=== PATIENT | male | born 1935 | race Caucasian/White ===

== ENCOUNTER 2017-02-13 22:48 | Emergency (ER) | payer MEDICARE, OTHER ==
[2017-02-13] MEDS ORDERED: Sodium Chloride 0.9% 1,000 ML IV SCH (23:45)
--- NOTE | 2017-02-14 01:26 | EDM.PDOC ---
ED HPI GENERAL MEDICAL PROBLEM - General Chief Complaint: General Stated Complaint: ILLNESS Time Seen by Provider: 02/14/17 01:12 Source of Information: Reports: Patient, Family History Limitations: Reports: No Limitations - History of Present Illness INITIAL COMMENTS - FREE TEXT/NARRATIVE: This gentleman arrived by EMS. The complaint is lethargy. The history is given by his who says that he's just been sort of lethargic today and couldn't even sit up. He had a cough that started yesterday. She said today that time she just wasn't responding very well. Only thing he's had to eat or drink today is about 2 tablespoons of broth for lunch. Nothing else. She thinks maybe he had a fever he just felt hot. Patient says he feels fine. Denies Pain Score (Numeric/FACES): 0 - Related Data Allergies Allergy/AdvReac Type Severity Reaction Status Date / Time latex AdvReac Rash Verified 02/13/17 22:57 Home Meds: Home Meds Aspirin [Adult Low Dose Aspirin EC] 81 mg PO DAILY 03/19/16 [History] Cinnamon Bark [Cinnamon] 500 mg PO DAILY 03/19/16 [History] Coconut Oil 1,000 mg PO DAILY 03/19/16 [History] Donepezil HCl [Aricept] 10 mg PO DAILY 03/19/16 [History] Metoprolol Succinate [Toprol XL] 25 mg PO DAILY 03/19/16 [History] Mirabegron [Myrbetriq] 50 mg PO DAILY 03/19/16 [History] Tamsulosin [Flomax] 0.4 mg PO DAILY 03/19/16 [History] metFORMIN [Glucophage] 500 mg PO DAILY 03/19/16 [History] Cyanocobalamin (Vitamin B-12) [Vitamin B-12] 500 mcg PO DAILY 02/13/17 [History] Past Medical History HEENT History: Reports: Hard of Hearing, Impaired Vision, Other (See Below) Other HEENT History: Hearing aids Cardiovascular History: Reports: Hypertension Respiratory History: Reports: Pneumonia, Recurrent, Sleep Apnea Gastrointestinal History: Reports: None Musculoskeletal History: Reports: Fracture Neurological History: Reports: Alzheimers Disease, Neuropathy, Diabetic Psychiatric History: Reports: Alzheimers Disease, Anxiety, Dementia, Depression Endocrine/Metabolic History: Reports: Diabetes, Type II - Infectious Disease History Infectious Disease History: Reports: Chicken Pox - Past Surgical History GI Surgical History: Reports: Colonoscopy Male Surgical History: Reports: TURP-Transurethral Resection of Prostate Social & Family History - Tobacco Use Smoking Status *Q: Never Smoker Second Hand Smoke Exposure: No - Caffeine Use Caffeine Use: Reports: Coffee, Soda, Tea - Recreational Drug Use Recreational Drug Use: No - Living Situation & Occupation Living situation: Reports: ED ROS GENERAL - Review of Systems Review Of Systems: See Below Constitutional: Reports: Fever (Possible according to his ), Weakness (Per ) HEENT: Reports: No Symptoms Respiratory: Reports: Cough (Slight cough as per his ) Cardiovascular: Reports: No Symptoms Endocrine: Reports: No Symptoms GI/Abdominal: Reports: No Symptoms : Reports: No Symptoms Musculoskeletal: Reports: No Symptoms Skin: Reports: No Symptoms Neurological: Reports: No Symptoms Psychiatric: Reports: No Symptoms ED EXAM, GENERAL - Physical Exam Exam: See Below Exam Limited By: No Limitations General Appearance: Alert, WD/WN, No Apparent Distress Eye Exam: Bilateral Eye: Normal Inspection Ears: Normal External Exam, Other (Left TM is normal right TM is obscured by a small amount of cerumen) Nose: Normal Inspection Throat/Mouth: Normal Inspection, Normal Oropharynx Head: Atraumatic Neck: Normal Inspection, Supple Respiratory/Chest: Lungs Clear Cardiovascular: Normal Peripheral Pulses, Regular Rate, Rhythm, No Murmur GI/Abdominal: Soft, Non-Tender Back Exam: Normal Inspection Extremities: Normal Inspection Neurological: Alert, Oriented (He knows who he is where he is negative family members. He is said to have some history of Alzheimer's disease), CN II-XII Intact, Normal Cognition, No Motor/Sensory Deficits Psychiatric: Normal Affect Skin Exam: Warm, Dry Course - Vital Signs Last Recorded V/S: Last Vital Signs Temp 37.9 C 02/13/17 23:15 Pulse 73 02/13/17 23:15 Resp 16 02/13/17 23:15 BP 145/88 H 02/13/17 23:15 Pulse Ox 93 L 02/13/17 23:15 - Orders/Labs/Meds Orders: Active Orders 24 hr Category Date Time Status Chest 1V Frontal [CR] Urgent Exams 02/13/17 23:32 Taken Sodium Chloride 0.9% [Normal Saline] 1,000 ml Med 02/13/17 23:45 Active IV ASDIRECTED Medication Orders Sodium Chloride (Normal Saline) 1,000 mls @ 999 mls/hr IV ASDIRECTED LARISSA Last Admin: 02/13/17 23:39 Dose: 999 mls/hr Labs: Laboratory Tests 02/13/17 02/13/17 02/13/17 Range/Units 23:40 23:40 23:40 WBC 10.0 (4.5-11.0) K/uL RBC 4.97 (4.30-5.90) M/uL Hgb 14.8 (12.0-15.0) g/dL Hct 43.5 (40.0-54.0) % MCV 88 (80-98) fL MCH 30 (27-31) pg MCHC 34 (32-36) % Plt Count 164 (150-400) K/uL Neut % (Auto) 82 H (36-66) % Lymph % (Auto) 4 L (24-44) % [place] % (Auto) 13 H (2-6) % Eos % (Auto) 0 L (2-4) % Baso % (Auto) 0 (0-1) % Sodium 138 L (140-148) mmol/L Potassium 4.5 (3.6-5.2) mmol/L Chloride 102 (100-108) mmol/L Carbon Dioxide 27 (21-32) mmol/L Anion Gap 13.5 (5.0-14.0) mmol/L BUN 16 (7-18) mg/dL Creatinine 1.2 (0.8-1.3) mg/dL Est Cr Clr Drug Dosing 46.67 mL/min Estimated GFR (MDRD) 58 L (>60) Glucose 147 H (74-106) mg/dL Lactic Acid 1.2 (0.4-2.0) mmol/L Calcium 8.7 (8.5-10.1) mg/dL Total Bilirubin 0.9 (0.2-1.0) mg/dL AST 13 L (15-37) U/L ALT 20 (12-78) U/L Alkaline Phosphatase 53 (46-116) U/L Total Protein 6.3 L (6.4-8.2) g/dL Albumin 3.4 (3.4-5.0) g/dL Globulin 2.9 (2.3-3.5) g/dL Albumin/Globulin Ratio 1.2 (1.2-2.2) Urine Color Urine Appearance Urine pH (4.5-8.0) Ur Specific [place] (1.008-1.030) Urine Protein (NEGATIVE) mg/dL Urine Glucose (UA) (NEGATIVE) mg/dL Urine Ketones (NEGATIVE) mg/dL Urine Occult Blood (NEGATIVE) Urine Nitrite (NEGAITVE) Urine Bilirubin (NEGATIVE) Urine Urobilinogen (NORMAL) mg/dL Ur Leukocyte Esterase (NEGATIVE) Urine RBC (0-5) Urine WBC (0-5) Ur Epithelial Cells Amorphous Sediment Urine Bacteria Urine Mucus 02/14/17 Range/Units 00:41 WBC (4.5-11.0) K/uL RBC (4.30-5.90) M/uL Hgb (12.0-15.0) g/dL Hct (40.0-54.0) % MCV (80-98) fL MCH (27-31) pg MCHC (32-36) % Plt Count (150-400) K/uL Neut % (Auto) (36-66) % Lymph % (Auto) (24-44) % [place] % (Auto) (2-6) % Eos % (Auto) (2-4) % Baso % (Auto) (0-1) % Sodium (140-148) mmol/L Potassium (3.6-5.2) mmol/L Chloride (100-108) mmol/L Carbon Dioxide (21-32) mmol/L Anion Gap (5.0-14.0) mmol/L BUN (7-18) mg/dL Creatinine (0.8-1.3) mg/dL Est Cr Clr Drug Dosing mL/min Estimated GFR (MDRD) (>60) Glucose (74-106) mg/dL Lactic Acid (0.4-2.0) mmol/L Calcium (8.5-10.1) mg/dL Total Bilirubin (0.2-1.0) mg/dL AST (15-37) U/L ALT (12-78) U/L Alkaline Phosphatase (46-116) U/L Total Protein (6.4-8.2) g/dL Albumin (3.4-5.0) g/dL Globulin (2.3-3.5) g/dL Albumin/Globulin Ratio (1.2-2.2) Urine Color Yellow Urine Appearance Clear Urine pH 6.0 (4.5-8.0) Ur Specific [place] 1.020 (1.008-1.030) Urine Protein Negative (NEGATIVE) mg/dL Urine Glucose (UA) Normal (NEGATIVE) mg/dL Urine Ketones 15 H (NEGATIVE) mg/dL Urine Occult Blood Negative (NEGATIVE) Urine Nitrite Negative (NEGAITVE) Urine Bilirubin Negative (NEGATIVE) Urine Urobilinogen Normal (NORMAL) mg/dL Ur Leukocyte Esterase Negative (NEGATIVE) Urine RBC 0-5 (0-5) Urine WBC 0-5 (0-5) Ur Epithelial Cells Not seen Amorphous Sediment Rare Urine Bacteria Not seen Urine Mucus Not seen Meds: Medications Generic Name Dose Route Start Last Admin Trade Name Freq PRN Reason Stop Dose Admin Sodium Chloride 1,000 mls @ 999 mls/hr 02/13/17 23:45 02/13/17 23:39 Normal Saline IV 999 mls/hr ASDIRECTED LARISSA Administration - Re-Assessments/Exams Free Text/Narrative Re-Assessment/Exam: 02/14/17 01:24 Pending labs he was given a 1 L bolus of IV normal saline. His chest x-ray shows no evidence of any infiltrates. CBC and chemistries are unremarkable. His urinalysis is unremarkable. After all labs in the hydration we stood the patient up and his blood pressure was well within normal range I believe 128 systolic. The nurse walked him around in the hallway in the ER and he did very well. I think most likely he may have been just slightly behind on fluids. I don 't see any indication of any infection. Departure - Departure Time of Disposition: 01:26 Disposition: Home, Self-Care 01 Condition: Fair Clinical Impression: Dehydration - Discharge Information Referrals: Philipp Diaz MD [Primary Care Provider] - Additional Instructions: There was no sign of any kind of infection. He may have been just slightly dehydrated. He received 1 L of IV normal saline. He probably needs a little bit more fluid which she can get orally. The best thing is to just be sure that he' s getting plenty of liquids tomorrow. If he has more problems than return to the ER or see your Dr. - My Orders Last 24 Hours: My Active Orders 02/13/17 23:32 Chest 1V Frontal [CR] Urgent 02/13/17 23:45 Sodium Chloride 0.9% [Normal Saline] 1,000 ml IV ASDIRECTED - Assessment/Plan Last 24 Hours: My Active Orders 02/13/17 23:32 Chest 1V Frontal [CR] Urgent 02/13/17 23:45 Sodium Chloride 0.9% [Normal Saline] 1,000 ml IV ASDIRECTED
[2017-02-14 01:46] VITALS: BP 128/81
--- NOTE | 2017-02-14 08:58 | CR ---
Chest 1V Frontal INDICATION: pain COMPARISON: 03/21/2016 FINDINGS: Single view of the chest obtained shows normal heart size. No infiltrate or pleural effus ion. No signs of pulmonary edema. IMPRESSION: Negative single view of the chest.
== END 2017-02-14 01:46 | disposition home or self-care (01) ==
LOC: JP.ED 22:48
DX: E86.0 Dehydration (principal); E11.40 Type 2 diabetes mellitus with diabetic neuropathy, unspecified; I10 Essential (primary) hypertension; Z79.82 Long term (current) use of aspirin; Z91.040 Latex allergy status; Z79.899 Other long term (current) drug therapy; Z87.01 Personal history of pneumonia (recurrent); Z79.84 Long term (current) use of oral hypoglycemic drugs
CPT/HCPCS: 36415; 71010; 80053; 81001; 83605; 85025; 96360; 99284; J7040

== ENCOUNTER 2018-09-08 15:57 | Observation (INO) | payer MEDICARE, OTHER ==
[2018-09-08] MEDS ORDERED: Lidocaine 2% Jelly 10 ML Urojet MUCMEM ONE (16:45)
--- NOTE | 2018-09-08 16:45 | EDM.PDOC ---
ED HPI GENERAL MEDICAL PROBLEM - General Chief Complaint: General Stated Complaint: [facility] Time Seen by Provider: 09/08/18 16:10 Source of Information: Reports: Patient, EMS, Family History Limitations: Reports: No Limitations - History of Present Illness INITIAL COMMENTS - FREE TEXT/NARRATIVE: 83-year-old male, dementia, who is cared for by his had a clinic visit last week and was doing well. He is generally weak but assist with ambulation and is usually much easier to take care of. This morning however instead of waking at 9:30, his normal waking time, his had to wake him up much later in the morning. He was diaphoretic, weak, and unable to help her getting up. Eventually she managed to get him into the bathroom but after sitting on the toilet again he was unable to get up. The patient himself has no complaints, does not seem short of breath, is just very weak. She had to call the ambulance who assisted him off of the toilet and then prepared him to come into the emergency room. He's had no fevers but was diaphoretic this morning. No asymmetric weakness, and now that he is here in the emergency room his strength is improved, he is able to sit up with assistance and his speech is clear. Onset: Unknown/Unsure Associated Symptoms: Reports: Malaise, Nausea/Vomiting (Patient had one emesis on the way to the emergency room in the ambulance), Weakness - Related Data Allergies Allergy/AdvReac Type Severity Reaction Status Date / Time latex AdvReac Rash Verified 02/13/17 22:57 Home Meds: Home Meds Aspirin [Adult Low Dose Aspirin EC] 81 mg PO DAILY 03/19/16 [History] Cinnamon Bark [Cinnamon] 500 mg PO DAILY 03/19/16 [History] Coconut Oil 1,000 mg PO DAILY 03/19/16 [History] Donepezil HCl [Aricept] 10 mg PO DAILY 03/19/16 [History] Metoprolol Succinate [Toprol XL] 25 mg PO DAILY 03/19/16 [History] Mirabegron [Myrbetriq] 50 mg PO DAILY 03/19/16 [History] Tamsulosin [Flomax] 0.4 mg PO DAILY 03/19/16 [History] metFORMIN [Glucophage] 500 mg PO DAILY 03/19/16 [History] QUEtiapine Fumarate [Quetiapine Fumarate] 12.5 mg PO DAILY 09/08/18 [History] Past Medical History HEENT History: Reports: Hard of Hearing, Impaired Vision, Other (See Below) Other HEENT History: Hearing aids Cardiovascular History: Reports: Hypertension Respiratory History: Reports: Pneumonia, Recurrent, Sleep Apnea Gastrointestinal History: Reports: None Musculoskeletal History: Reports: Fracture Neurological History: Reports: Alzheimers Disease, Neuropathy, Diabetic Psychiatric History: Reports: Alzheimers Disease, Anxiety, Dementia, Depression Endocrine/Metabolic History: Reports: Diabetes, Type II - Infectious Disease History Infectious Disease History: Reports: Chicken Pox - Past Surgical History GI Surgical History: Reports: Colonoscopy Male Surgical History: Reports: TURP-Transurethral Resection of Prostate Social & Family History - Tobacco Use Smoking Status *Q: Never Smoker - Caffeine Use Caffeine Use: Reports: Coffee - Recreational Drug Use Recreational Drug Use: No - Living Situation & Occupation Living situation: Reports: ED ROS GENERAL - Review of Systems Review Of Systems: See Below Constitutional: Reports: Chills, Malaise, Weakness. Denies: Fever HEENT: Reports: Rhinitis Respiratory: Reports: Cough. Denies: Sputum Cardiovascular: Denies: Chest Pain GI/Abdominal: Reports: Nausea, Vomiting (One emesis in route to the hospital). Denies: Abdominal Pain Skin: Reports: Pallor, Diaphoresis Neurological: Reports: Weakness. Denies: Headache, Numbness Psychiatric: Reports: Other (Slowly worsening dementia) ED EXAM, GENERAL - Physical Exam Exam: See Below Exam Limited By: No Limitations General Appearance: Alert, No Apparent Distress Eye Exam: Bilateral Eye: EOMI Throat/Mouth: Normal Inspection Head: Atraumatic Neck: Normal Inspection Respiratory/Chest: No Respiratory Distress, Rhonchi (A few scattered rhonchi, good underlying or movement) Cardiovascular: Regular Rate, Rhythm GI/Abdominal: Soft, Non-Tender Extremities: No: Pedal Edema Neurological: Alert. No: Oriented Psychiatric: No: Depressed Mood Skin Exam: Warm, Dry Course - Vital Signs Last Recorded V/S: Last Vital Signs Temp 100.3 F 09/09/18 04:00 Pulse 69 09/09/18 04:00 Resp 18 09/09/18 04:00 BP 150/74 H 09/09/18 04:00 Pulse Ox 94 L 09/09/18 04:00 - Orders/Labs/Meds Orders: Medication Orders Acetaminophen (Tylenol) 650 mg PO Q4H PRN PRN Reason: Pain (Mild 1-3)/fever Albuterol (Proventil Neb Soln) 2.5 mg NEB Q4H PRN PRN Reason: Shortness Of Breath/wheezing Aspirin (Halfprin) 81 mg PO DAILY [facility] Donepezil HCl (Aricept) 10 mg PO DAILY [facility] Doxycycline Hyclate (Vibramycin) 100 mg PO Q12H [facility] Last Admin: 09/08/18 21:05 Dose: 100 mg Sodium Chloride (Normal Saline) 1,000 mls @ 125 mls/hr IV ASDIRECTED [facility] Last Admin: 09/09/18 04:44 Dose: 125 mls/hr Infusion: 09/09/18 04:44 Dose: 125 mls/hr Admin: 09/08/18 20:44 Dose: 125 mls/hr Melatonin (Melatonin) 9 mg PO BEDTIME [facility] Last Admin: 09/08/18 21:05 Dose: 9 mg Metformin HCl (Glucophage) 500 mg PO DAILY [facility] Metoprolol Succinate (Toprol Xl) 25 mg PO DAILY [facility] Mirabegron (Myrbetriq) 50 mg PO DAILY [facility] Ondansetron HCl (Zofran Odt) 4 mg PO Q6H PRN PRN Reason: Nausea able to take PO Quetiapine Fumarate (Seroquel) 12.5 mg PO BEDTIME [facility] Last Admin: 09/08/18 21:06 Dose: 12.5 mg Tamsulosin HCl (Flomax) 0.4 mg PO DAILY [facility] Labs: Laboratory Tests 09/08/18 09/08/18 09/08/18 Range/Units 16:37 16:37 17:21 WBC 9.9 (4.5-11.0) K/uL RBC 5.38 (4.30-5.90) M/uL Hgb 16.0 H (12.0-15.0) g/dL Hct 47.9 (40.0-54.0) % MCV 89 (80-98) fL MCH 30 (27-31) pg MCHC 33 (32-36) % Plt Count 168 (150-400) K/uL Neut % (Auto) 82 H (36-66) % Lymph % (Auto) 5 L (24-44) % [place] % (Auto) 13 H (2-6) % Eos % (Auto) 0 L (2-4) % Baso % (Auto) 0 (0-1) % Sodium 138 L (140-148) mmol/L Potassium 4.5 (3.6-5.2) mmol/L Chloride 101 (100-108) mmol/L Carbon Dioxide 25 (21-32) mmol/L Anion Gap 16.5 H (5.0-14.0) mmol/L BUN 18 (7-18) mg/dL Creatinine 1.3 (0.8-1.3) mg/dL Est Cr Clr Drug Dosing 44.57 mL/min Estimated GFR (MDRD) 53 L (>60) Glucose 162 H (74-106) mg/dL Calcium 9.1 (8.5-10.1) mg/dL Total Bilirubin 1.0 (0.2-1.0) mg/dL AST 14 L (15-37) U/L ALT 20 (12-78) U/L Alkaline Phosphatase 62 (46-116) U/L Troponin I < 0.017 (0.000-0.056) ng/mL Total Protein 6.7 (6.4-8.2) g/dL Albumin 3.4 (3.4-5.0) g/dL Globulin 3.3 (2.3-3.5) g/dL Albumin/Globulin Ratio 1.0 L (1.2-2.2) Urine Color [place] Urine Appearance Clear Urine pH 5.0 (4.5-8.0) Ur Specific [place] 1.020 (1.008-1.030) Urine Protein Trace (NEGATIVE) mg/dL Urine Glucose (UA) 50 H (NEGATIVE) mg/dL Urine Ketones 150 H (NEGATIVE) mg/dL Urine Occult Blood Negative (NEGATIVE) Urine Nitrite Negative (NEGAITVE) Urine Bilirubin Moderate (NEGATIVE) Urine Urobilinogen 1 (NORMAL) mg/dL Ur Leukocyte Esterase Small (NEGATIVE) Urine RBC 0-5 (0-5) Urine WBC 5-10 H (0-5) Ur Epithelial Cells Few Amorphous Sediment Few Urine Bacteria Occasional Urine Mucus Few Meds: Medications Generic Name Dose Route Start Last Admin Trade Name Freq PRN Reason Stop Dose Admin Acetaminophen 650 mg 09/08/18 19:45 Tylenol PO Q4H PRN Pain (Mild 1-3)/fever Albuterol 2.5 mg 09/08/18 19:45 Proventil Neb Soln NEB Q4H PRN Shortness Of Breath/wheezing Aspirin 81 mg 09/09/18 09:00 Halfprin PO DAILY [facility] Donepezil HCl 10 mg 09/09/18 09:00 Aricept PO DAILY LARIS[facility] Doxycycline Hyclate 100 mg 09/08/18 20:00 09/08/18 21:05 Vibramycin PO 100 mg Q12H LARISSA Administration Sodium Chloride 1,000 mls @ 125 mls/hr 09/08/18 19:45 09/09/18 04:44 Normal Saline IV 125 mls/hr ASDIRECTED LARISSA Administration Melatonin 9 mg 09/08/18 21:00 09/08/18 21:05 Melatonin PO 9 mg BEDTIME LARISSA Administration Metformin HCl 500 mg 09/09/18 09:00 Glucophage PO DAILY LARIS[facility] Metoprolol Succinate 25 mg 09/09/18 09:00 Toprol Xl PO DAILY LAR[facility] Mirabegron 50 mg 09/09/18 09:00 Myrbetriq PO DAILY [facility] Ondansetron HCl 4 mg 09/08/18 19:45 Zofran Odt PO Q6H PRN Nausea able to take PO Quetiapine Fumarate 12.5 mg 09/08/18 21:00 09/08/18 21:06 Seroquel PO 12.5 mg BEDTIME LARISSA Administration Tamsulosin HCl 0.4 mg 09/09/18 09:00 Flomax PO DAILY LARISSA Discontinued Medications Generic Name Dose Route Start Last Admin Trade Name Freq PRN Reason Stop Dose Admin Sodium Chloride 1,000 mls @ 500 mls/hr 09/08/18 18:30 09/08/18 18:34 Normal Saline IV 500 mls/hr ASDIRECTED LARISSA Administration Lidocaine HCl 10 ml 09/08/18 16:45 09/08/18 17:01 Xylocaine 2% Jelly MUCMEM 09/08/18 16:46 10 ml ONETIME ONE Administration - Re-Assessments/Exams Free Text/Narrative Re-Assessment/Exam: 09/08/18 18:29 1 view chest x-ray was obtained which showed some possible lymphadenopathy but no infiltrate or effusions. 09/08/18 18:30 White count hemoglobin are normal. Troponin is 0. Urine is negative for significant infection but there are ketones, his chemistry panel shows a GFR of 53 and a creatinine 1.3. He may have some mild dehydration so an IV was started of normal saline at 500 mL an hour. Despite the patient remained stable, he still remained very weak and his is unable to care for him at home in this condition. I talked to the hospitalist service about monitoring him overnight with hydration and reassessing his strength in the morning, along with considering any further evaluation necessary. He has not had any more nausea or emesis while in the emergency room. Departure - Departure Time of Disposition: 19:39 Disposition: Admitted As Inpatient 68 Condition: Fair Clinical Impression: Weakness, Dehydration, Viral bronchitis Alzheimer's dementia Qualifiers: Alzheimer's disease onset: unspecified onset Dementia behavioral disturbance: without behavioral disturbance Qualified Code(s): G30.9 - Alzheimer's disease, unspecified - Discharge Information
--- NOTE | 2018-09-08 17:28 | CRLCR ---
Indication: Weakness. Cough Technique: Chest 1 view Comparison: None Findings/Impression: Cardiovascular and mediastinum: Normal cardiac size. A calcified aorta. Lungs and pleural space: Several ill-defined left perihilar and suprahilar nodular opacities measuring up to 1 cm, and an apparent subtle right upper lung nodular opacity projecting over the anterior 2nd rib. Recommend further evaluation with CT scan. No lobar consolidation or pleural effusions. Bones and soft tissues: No significant findings. Dictated by Maneul Parks MD @ 09/08/2018 5:27:18 PM Dictated by: Manuel Parks MD @ 09/08/2018 17:27:40 (Electronically Signed)
[2018-09-08] MEDS ORDERED: Sodium Chloride 0.9% 1,000 ML IV SCH (18:30)
--- NOTE | 2018-09-08 19:22 | PCM.HP ---
H&P History of Present Illness - General Date of Service: 09/08/18 Admit Problem/Dx: Admission Diagnosis/Problem Admission Diagnosis/Problem Bronchitis Source of Information: Family, Provider. No: Patient History Limitations: Reports: Altered Mental Status (dementia ) - History of Present Illness Initial Comments - Free Text/Narative: Satish presents to the emergency room today with weakness. History is limited by Alzheimer's dementia so history is gathered from his . She reports that he normally wakes up at 9:30 but did not wake up until she woke him up at 1:30 this afternoon. He was very weak and required help to get to the bathroom. Normally he can walk without difficulty. Once he was in the bathroom he remains very weak. He was diaphoretic at that time. He was more confused than usual. He did not offer any complaints at the time and currently says he feels well. She does note he's been coughing for maybe up to a couple of weeks. He does produce phlegm but swallows it and has not expectorated. She doesn't think that he's appeared to be in pain. Haven't measured any fevers. Appetite has been normal. Energy is been normal up until today. Mild diarrhea intermittently over the past week. Workup in the emergency room was fairly reassuring. The patient is extremely weak and not safe for outpatient management. Bronchitis could be considered. He will be given some IV fluids for mild dehydration and started on antibiotics. Physical therapy will evaluate him in the morning. - Related Data Allergies/Adverse Reactions: Allergies Allergy/AdvReac Type Severity Reaction Status Date / Time latex AdvReac Rash Verified 02/13/17 22:57 Home Medications: Home Meds Aspirin [Adult Low Dose Aspirin EC] 81 mg PO DAILY 03/19/16 [History] Cinnamon Bark [Cinnamon] 500 mg PO DAILY 03/19/16 [History] Coconut Oil 1,000 mg PO DAILY 03/19/16 [History] Donepezil HCl [Aricept] 10 mg PO DAILY 03/19/16 [History] Metoprolol Succinate [Toprol XL] 25 mg PO DAILY 03/19/16 [History] Mirabegron [Myrbetriq] 50 mg PO DAILY 03/19/16 [History] Tamsulosin [Flomax] 0.4 mg PO DAILY 03/19/16 [History] metFORMIN [Glucophage] 500 mg PO DAILY 03/19/16 [History] QUEtiapine Fumarate [Quetiapine Fumarate] 12.5 mg PO DAILY 09/08/18 [History] Past Medical History HEENT History: Reports: Hard of Hearing, Impaired Vision, Other (See Below) Other HEENT History: Hearing aids Cardiovascular History: Reports: Hypertension Respiratory History: Reports: Pneumonia, Recurrent, Sleep Apnea Gastrointestinal History: Reports: None Musculoskeletal History: Reports: Fracture Neurological History: Reports: Alzheimers Disease, Neuropathy, Diabetic Psychiatric History: Reports: Alzheimers Disease, Anxiety, Dementia, Depression Endocrine/Metabolic History: Reports: Diabetes, Type II - Infectious Disease History Infectious Disease History: Reports: Chicken Pox - Past Surgical History GI Surgical History: Reports: Colonoscopy Male Surgical History: Reports: TURP-Transurethral Resection of Prostate Social & Family History - Family History Oncologic: Reports: Lung (Mother) - Tobacco Use Smoking Status *Q: Never Smoker - Caffeine Use Caffeine Use: Reports: Coffee - Alcohol Use Alcohol Use History: No - Recreational Drug Use Recreational Drug Use: No - Living Situation & Occupation Living situation: Reports: H&P Review of Systems - Review of Systems: Review Of Systems: Unable To Obtain (Dementia) Exam - Exam Exam: See Below - Vital Signs Vital Signs: Last Vital Signs Temp 36.1 C 09/08/18 16:04 Pulse 67 09/08/18 16:04 Resp 16 09/08/18 16:04 BP 158/64 H 09/08/18 16:04 Pulse Ox 96 09/08/18 16:04 Weight: 88.451 kg - Exam Quality Assessment: No: Supplemental Oxygen General: Alert, Cooperative. No: Oriented, Mild Distress HEENT: No: Mucosa Moist & [place] (dry), Scleral Icterus Neck: Trachea Midline. No: Lymphadenopathy, JVD Lungs: Normal Respiratory Effort, Rhonchi (Rare intermittent rhonchi on the left side). No: Wheezing Cardiovascular: Regular Rate, Regular Rhythm. No: Systolic Murmur GI/Abdominal Exam: Normal Bowel Sounds, Soft, Non-Tender. No: No Distention Extremities: No Pedal Edema. No: Increased Warmth Peripheral Pulses: 2+: Dorsalis Pedis (L), Dorsalis Pedis (R) Skin: Warm, Dry Neuro Extensive - Mental Status: Alert, Oriented x3, Nl Response to Commands Neuro Extensive - Motor, Sensory, Reflexes: CN II-XII Intact. No: Abnormal Motor, Tremor Psychiatric: Alert, Normal Affect - Patient Data Lab Results Last 24 hrs: Laboratory Results - last 24 hr 09/08/18 09/08/18 09/08/18 Range/Units 16:37 16:37 17:21 WBC 9.9 (4.5-11.0) K/uL RBC 5.38 (4.30-5.90) M/uL Hgb 16.0 H (12.0-15.0) g/dL Hct 47.9 (40.0-54.0) % MCV 89 (80-98) fL MCH 30 (27-31) pg MCHC 33 (32-36) % Plt Count 168 (150-400) K/uL Neut % (Auto) 82 H (36-66) % Lymph % (Auto) 5 L (24-44) % [place] % (Auto) 13 H (2-6) % Eos % (Auto) 0 L (2-4) % Baso % (Auto) 0 (0-1) % Sodium 138 L (140-148) mmol/L Potassium 4.5 (3.6-5.2) mmol/L Chloride 101 (100-108) mmol/L Carbon Dioxide 25 (21-32) mmol/L Anion Gap 16.5 H (5.0-14.0) mmol/L BUN 18 (7-18) mg/dL Creatinine 1.3 (0.8-1.3) mg/dL Est Cr Clr Drug Dosing 44.57 mL/min Estimated GFR (MDRD) 53 L (>60) Glucose 162 H (74-106) mg/dL Calcium 9.1 (8.5-10.1) mg/dL Total Bilirubin 1.0 (0.2-1.0) mg/dL AST 14 L (15-37) U/L ALT 20 (12-78) U/L Alkaline Phosphatase 62 (46-116) U/L Troponin I < 0.017 (0.000-0.056) ng/mL Total Protein 6.7 (6.4-8.2) g/dL Albumin 3.4 (3.4-5.0) g/dL Globulin 3.3 (2.3-3.5) g/dL Albumin/Globulin Ratio 1.0 L (1.2-2.2) Urine Color [place] Urine Appearance Clear Urine pH 5.0 (4.5-8.0) Ur Specific [place] 1.020 (1.008-1.030) Urine Protein Trace (NEGATIVE) mg/dL Urine Glucose (UA) 50 H (NEGATIVE) mg/dL Urine Ketones 150 H (NEGATIVE) mg/dL Urine Occult Blood Negative (NEGATIVE) Urine Nitrite Negative (NEGAITVE) Urine Bilirubin Moderate (NEGATIVE) Urine Urobilinogen 1 (NORMAL) mg/dL Ur Leukocyte Esterase Small (NEGATIVE) Urine RBC 0-5 (0-5) Urine WBC 5-10 H (0-5) Ur Epithelial Cells Few Amorphous Sediment Few Urine Bacteria Occasional Urine Mucus Few Result Diagrams: 09/08/18 16:37 09/08/18 16:37 Imaging Impressions Last 24 hrs: Chest x-ray - images personally reviewed - There is no evidence for mass, infiltrate or effusion. There do appear to be some small nodules in the upper lung in the perihilar and right upper lobe area. *Q Meaningful Use (ADM) - VTE Risk Assess *Q Each Risk Factor Represents 1 Point: Obesity ( BMI > 25 kg/m2) Total Score 1 Point Risk Factors: 1 Each Risk Factor Represents 2 Points: None Total Score 2 Point Risk Factors: 0 Each Risk Factor Represents 3 Points: Age 75 Years or Greater Total Score 3 Point Risk Factors: 3 Each Risk Factor Represents 5 Points: None Total Score 5 Point Risk Factors: 0 Venous Thromboembolism Risk Factor Score *Q: 4 - Problem List (1) Acute bronchitis SNOMED Code(s): 51690511 ICD Code: J20.9 - ACUTE BRONCHITIS, UNSPECIFIED Status: Acute Current Visit: Yes Qualifiers: Bronchitis organism: unspecified organism Qualified Code(s): J20.9 - Acute bronchitis, unspecified (2) Weakness SNOMED Code(s): 36144547 ICD Code: R53.1 - WEAKNESS Status: Acute Current Visit: Yes (3) Dehydration SNOMED Code(s): 15779508 ICD Code: E86.0 - DEHYDRATION Status: Acute Current Visit: Yes (4) Alzheimer's dementia SNOMED Code(s): 33958267 ICD Code: G30.9 - ALZHEIMER'S DISEASE, UNSPECIFIED Status: Chronic Current Visit: Yes Qualifiers: Alzheimer's disease onset: unspecified onset Dementia behavioral disturbance: without behavioral disturbance Qualified Code(s): G30.9 - Alzheimer's disease, unspecified; F02.80 - Dementia in other diseases classified elsewhere without behavioral disturbance (5) Type 2 diabetes mellitus SNOMED Code(s): 02435520 ICD Code: E11.9 - TYPE 2 DIABETES MELLITUS WITHOUT COMPLICATIONS Status: Chronic Current Visit: No Qualifiers: Diabetes mellitus mcc insulin use: without exterminator termite use Diabetes mellitus complication status: without complication Qualified Code(s): E11.9 - Type 2 diabetes mellitus without complications Problem List Initiated/Reviewed/Updated: Yes Orders Last 24hrs: Active Orders 24 hr Category Date Time Status Patient Status Manage Transfer [TRANSFER] Routine ADT 09/08/18 19:09 Ordered Sodium Chloride 0.9% [Normal Saline] 1,000 ml Med 09/08/18 18:30 Active IV ASDIRECTED Resuscitation Status Routine Resus Stat 09/08/18 19:10 Ordered Medication Orders Sodium Chloride (Normal Saline) 1,000 mls @ 500 mls/hr IV ASDIRECTED [facility] Last Admin: 09/08/18 18:34 Dose: 500 mls/hr Assessment/Plan Comment:: ASSESSMENT AND PLAN - Acute bronchitis, suspected - increased cough, rare rhonchi noted on examination. Chest x-ray clear other than the lung nodules as discussed below. He is not hypoxic or febrile. White count is normal. This infection could explain his weakness with no other obvious cause for the weakness. -Doxycycline -IV fluids -Physical therapy Possible lung nodules - bilateral upper lung nodules possibly noted on chest x- ray. CT scan recommended for further evaluation. -CT chest in the morning Alzheimer's dementia - no behavior issues. -Melatonin and Seroquel at bedtime Type 2 diabetes mellitus - stable with metformin. Maintenance issues - - DVT prophylaxis - SCDs - GI prophylaxis - not indicated - Nutrition - diabetic diet - Mauricio catheter - not indicated CODE STATUS - DO NOT RESUSCITATE but trial of intubation is okay Admission justification - patient will be referred observation status for hydration and antibiotic initiation Disposition - I would anticipate discharge home tomorrow Primary care physician - Dr. Joe Hong M.D.
[2018-09-08] MEDS ORDERED: Albuterol 0.083% 2.5 MG/3 ML Neb Soln NEB PRN (19:45)
[2018-09-08] MEDS ORDERED: Acetaminophen 325 MG Tab PO PRN (19:45)
[2018-09-08] MEDS ORDERED: Ondansetron 4 MG Tab.DIS PO PRN (19:45)
[2018-09-08] MEDS ORDERED: Doxycycline 100 MG Cap PO SCH (20:00)
[2018-09-08] MEDS: Sodium Chloride 0.9% 1,000 ML IV SCH (20:44)
[2018-09-08] MEDS: Melatonin 3 MG Tab PO SCH (21:05)
[2018-09-08] MEDS: QUETIAPINE 25 MG PO SCH (21:06)
[2018-09-09] MEDS: Sodium Chloride 0.9% 1,000 ML IV SCH (04:44)
[2018-09-09] MEDS: Doxycycline 100 MG Cap PO SCH ×2 (08:21→20:47)
[2018-09-09] MEDS: Tamsulosin 0.4 MG Cap.ER**POM PO SCH (08:22)
[2018-09-09] MEDS: Aspirin 81 MG Tab.EC**POM PO SCH (08:22)
[2018-09-09] MEDS: DONEPEZIL 10 MG PO SCH (08:22)
[2018-09-09] MEDS ORDERED: metFORMIN 500 MG Tab PO SCH (09:00)
[2018-09-09] MEDS ORDERED: Metoprolol Succinate 25 MG Tab.ER PO SCH (09:00)
[2018-09-09] MEDS: Mirabegron 25 MG Tab Extended Release PO SCH ×2 (09:16→10:13)
--- NOTE | 2018-09-09 09:57 | PCM.PN ---
- General Info Date of Service: 09/09/18 Subjective Update: there were no acute events overnight. Patient says he feels better today. No complaints of shortness of breath or pain. Cough is much better but not resolved. No fevers overnight. Still requires assistance to get out of bed. He is able to ambulate with a walker but very slowly and with standby assistance. Vital signs have been stable. Functional Status: Reports: Pain Controlled - Review of Systems General: Reports: Weakness Pulmonary: Denies: Cough - Patient Data Vitals - Most Recent: Last Vital Signs Temp 37.0 C 09/09/18 08:00 Pulse 76 09/09/18 08:21 Resp 18 09/09/18 08:00 BP 162/79 H 09/09/18 08:21 Pulse Ox 96 09/09/18 08:00 Weight - Most Recent: 86.591 kg I&O - Last 24 Hours: Intake & Output 09/08/18 09/09/18 09/09/18 22:59 06:59 14:59 Intake Total 1300 Output Total 350 Balance 1300 -350 Lab Results Last 24 Hours: Laboratory Results - last 24 hr 09/08/18 09/08/18 09/08/18 Range/Units 16:37 16:37 17:21 WBC 9.9 (4.5-11.0) K/uL RBC 5.38 (4.30-5.90) M/uL Hgb 16.0 H (12.0-15.0) g/dL Hct 47.9 (40.0-54.0) % MCV 89 (80-98) fL MCH 30 (27-31) pg MCHC 33 (32-36) % Plt Count 168 (150-400) K/uL Neut % (Auto) 82 H (36-66) % Lymph % (Auto) 5 L (24-44) % [place] % (Auto) 13 H (2-6) % Eos % (Auto) 0 L (2-4) % Baso % (Auto) 0 (0-1) % Sodium 138 L (140-148) mmol/L Potassium 4.5 (3.6-5.2) mmol/L Chloride 101 (100-108) mmol/L Carbon Dioxide 25 (21-32) mmol/L Anion Gap 16.5 H (5.0-14.0) mmol/L BUN 18 (7-18) mg/dL Creatinine 1.3 (0.8-1.3) mg/dL Est Cr Clr Drug Dosing 44.57 mL/min Estimated GFR (MDRD) 53 L (>60) Glucose 162 H (74-106) mg/dL Calcium 9.1 (8.5-10.1) mg/dL Total Bilirubin 1.0 (0.2-1.0) mg/dL AST 14 L (15-37) U/L ALT 20 (12-78) U/L Alkaline Phosphatase 62 (46-116) U/L Troponin I < 0.017 (0.000-0.056) ng/mL Total Protein 6.7 (6.4-8.2) g/dL Albumin 3.4 (3.4-5.0) g/dL Globulin 3.3 (2.3-3.5) g/dL Albumin/Globulin Ratio 1.0 L (1.2-2.2) Urine Color [place] Urine Appearance Clear Urine pH 5.0 (4.5-8.0) Ur Specific [place] 1.020 (1.008-1.030) Urine Protein Trace (NEGATIVE) mg/dL Urine Glucose (UA) 50 H (NEGATIVE) mg/dL Urine Ketones 150 H (NEGATIVE) mg/dL Urine Occult Blood Negative (NEGATIVE) Urine Nitrite Negative (NEGAITVE) Urine Bilirubin Moderate (NEGATIVE) Urine Urobilinogen 1 (NORMAL) mg/dL Ur Leukocyte Esterase Small (NEGATIVE) Urine RBC 0-5 (0-5) Urine WBC 5-10 H (0-5) Ur Epithelial Cells Few Amorphous Sediment Few Urine Bacteria Occasional Urine Mucus Few 09/09/18 09/09/18 Range/Units 05:50 05:50 WBC 8.0 (4.5-11.0) K/uL RBC 4.93 (4.30-5.90) M/uL Hgb 14.7 (12.0-15.0) g/dL Hct 44.3 (40.0-54.0) % MCV 90 (80-98) fL MCH 30 (27-31) pg MCHC 33 (32-36) % Plt Count 141 L (150-400) K/uL Neut % (Auto) (36-66) % Lymph % (Auto) (24-44) % [place] % (Auto) (2-6) % Eos % (Auto) (2-4) % Baso % (Auto) (0-1) % Sodium 138 L (140-148) mmol/L Potassium 4.2 (3.6-5.2) mmol/L Chloride 103 (100-108) mmol/L Carbon Dioxide 25 (21-32) mmol/L Anion Gap 14.2 H (5.0-14.0) mmol/L BUN 15 (7-18) mg/dL Creatinine 1.2 (0.8-1.3) mg/dL Est Cr Clr Drug Dosing 48.28 mL/min Estimated GFR (MDRD) 58 L (>60) Glucose 112 H (74-106) mg/dL Calcium 8.5 (8.5-10.1) mg/dL Total Bilirubin (0.2-1.0) mg/dL AST (15-37) U/L ALT (12-78) U/L Alkaline Phosphatase (46-116) U/L Troponin I (0.000-0.056) ng/mL Total Protein (6.4-8.2) g/dL Albumin (3.4-5.0) g/dL Globulin (2.3-3.5) g/dL Albumin/Globulin Ratio (1.2-2.2) Urine Color Urine Appearance Urine pH (4.5-8.0) Ur Specific [place] (1.008-1.030) Urine Protein (NEGATIVE) mg/dL Urine Glucose (UA) (NEGATIVE) mg/dL Urine Ketones (NEGATIVE) mg/dL Urine Occult Blood (NEGATIVE) Urine Nitrite (NEGAITVE) Urine Bilirubin (NEGATIVE) Urine Urobilinogen (NORMAL) mg/dL Ur Leukocyte Esterase (NEGATIVE) Urine RBC (0-5) Urine WBC (0-5) Ur Epithelial Cells Amorphous Sediment Urine Bacteria Urine Mucus Med Orders - Current: Current Medications Acetaminophen (Tylenol) 650 mg PO Q4H PRN PRN Reason: Pain (Mild 1-3)/fever Albuterol (Proventil Neb Soln) 2.5 mg NEB Q4H PRN PRN Reason: Shortness Of Breath/wheezing Aspirin (Halfprin) 81 mg PO DAILY [facility] Last Admin: 09/09/18 08:22 Dose: 81 mg Donepezil HCl (Aricept) 10 mg PO DAILY [facility] Last Admin: 09/09/18 08:22 Dose: 10 mg Doxycycline Hyclate (Vibramycin) 100 mg PO BID [facility] Last Admin: 09/09/18 08:21 Dose: 100 mg Melatonin (Melatonin) 9 mg PO BEDTIME [facility] Last Admin: 09/08/18 21:05 Dose: 9 mg Metformin HCl (Glucophage) 0 mg PO DAILY@0800 [facility] Metoprolol Succinate (Toprol Xl) 25 mg PO DAILY [facility] Ondansetron HCl (Zofran Odt) 4 mg PO Q6H PRN PRN Reason: Nausea able to take PO Mirabegron 50 Mg Tab Extended Release Pom 0 each PO DAILY [facility] Quetiapine Fumarate (Seroquel) 12.5 mg PO BEDTIME [facility] Last Admin: 09/08/18 21:06 Dose: 12.5 mg Tamsulosin HCl (Flomax) 0.4 mg PO DAILY [facility] Last Admin: 09/09/18 08:22 Dose: 0.4 mg Discontinued Medications Doxycycline Hyclate (Vibramycin) 100 mg PO Q12H [facility] Last Admin: 09/08/18 21:05 Dose: 100 mg Sodium Chloride (Normal Saline) 1,000 mls @ 500 mls/hr IV ASDIRECTED [facility] Last Admin: 09/08/18 18:34 Dose: 500 mls/hr Sodium Chloride (Normal Saline) 1,000 mls @ 125 mls/hr IV ASDIRECTED [facility] Last Admin: 09/09/18 04:44 Dose: 125 mls/hr Lidocaine HCl (Xylocaine 2% Jelly) 10 ml [facility] ONETIME ONE Stop: 09/08/18 16:46 Last Admin: 09/08/18 17:01 Dose: 10 ml Metformin HCl (Glucophage) 500 mg PO DAILY [facility] Last Admin: 09/09/18 08:21 Dose: 500 mg Metoprolol Succinate (Toprol Xl) 25 mg PO DAILY [facility] Last Admin: 09/09/18 08:21 Dose: 25 mg Mirabegron (Myrbetriq) 50 mg PO DAILY [facility] - Exam Quality Assessment: No: Supplemental Oxygen General: Alert, Cooperative, No Acute Distress. No: Oriented Lungs: Clear to Auscultation, Normal Respiratory Effort Cardiovascular: Regular Rate, Regular Rhythm GI/Abdominal Exam: Soft, No Distention Extremities: No Pedal Edema Psy/Mental Status: Alert, Normal Affect - Problem List & Annotations (1) Acute bronchitis SNOMED Code(s): 29507387 Code(s): J20.9 - ACUTE BRONCHITIS, UNSPECIFIED Status: Acute Current Visit: Yes Qualifiers: Bronchitis organism: unspecified organism Qualified Code(s): J20.9 - Acute bronchitis, unspecified (2) Weakness SNOMED Code(s): 76235878 Code(s): R53.1 - WEAKNESS Status: Acute Current Visit: Yes (3) Dehydration SNOMED Code(s): 51528063 Code(s): E86.0 - DEHYDRATION Status: Acute Current Visit: Yes (4) Alzheimer's dementia SNOMED Code(s): 80453251 Code(s): G30.9 - ALZHEIMER'S DISEASE, UNSPECIFIED Status: Chronic Current Visit: Yes Qualifiers: Alzheimer's disease onset: unspecified onset Dementia behavioral disturbance: without behavioral disturbance Qualified Code(s): G30.9 - Alzheimer's disease, unspecified; F02.80 - Dementia in other diseases classified elsewhere without behavioral disturbance (5) Type 2 diabetes mellitus SNOMED Code(s): 44210007 Code(s): E11.9 - TYPE 2 DIABETES MELLITUS WITHOUT COMPLICATIONS Status: Chronic Current Visit: No Qualifiers: Diabetes mellitus mcc insulin use: without predatory animal exterminator use Diabetes mellitus complication status: without complication Qualified Code(s): E11.9 - Type 2 diabetes mellitus without complications - Problem List Review Problem List Initiated/Reviewed/Updated: Yes - My Orders Last 24 Hours: My Active Orders 09/08/18 19:10 Resuscitation Status Routine 09/08/18 19:45 Patient Status [ADT] Routine Antiembolic Devices [RC] .Routine Intake and Output [RC] QSHIFT Notify Provider Vital Signs [RC] ASDIRECTED Oxygen Therapy [RC] PRN Up With Assistance [RC] ASDIRECTED Vital Signs [RC] Q4H Acetaminophen [Tylenol] 650 mg PO Q4H PRN Albuterol [Proventil Neb Soln] 2.5 mg NEB Q4H PRN Ondansetron [Zofran ODT] 4 mg PO Q6H PRN Sequential Compression Device [OM.PC] Per Unit Routine 09/08/18 21:00 Melatonin 9 mg PO BEDTIME QUEtiapine [SEROquel] 12.5 mg PO BEDTIME 09/08/18 Dinner Regular Diet [DIET] 09/09/18 07:00 PT Evaluation and Treatment [CONS] Routine 09/09/18 09:00 Aspirin [Halfprin] 81 mg PO DAILY Donepezil [Aricept] 10 mg PO DAILY Doxycycline [Vibramycin] 100 mg PO BID Tamsulosin [Flomax] 0.4 mg PO DAILY 09/09/18 09:44 Metoprolol Succinate [Toprol XL] 25 mg PO DAILY 09/09/18 09:47 Convert IV to Saline Lock [OM.PC] Routine 09/10/18 08:00 metFORMIN [Glucophage] 0 mg PO DAILY@0800 09/10/18 09:00 Patient's Own Medication [Ptom] 0 each PO DAILY - Plan Plan:: ASSESSMENT AND PLAN - Acute bronchitis, suspected - increased cough, rare rhonchi noted on examination. Chest x-ray clear other than the lung nodules as discussed below. no fevers. Clinically feeling better. Lung exam benign today. Not requiring oxygen. still not strong enough for outpatient management but should be ready tomorrow. -Doxycycline -saline lock IV -Physical therapy Possible lung nodules - bilateral upper lung nodules possibly noted on chest x- ray. CT scan recommended for further evaluation. -CT chest this morning Alzheimer's dementia - no behavior issues. -Melatonin and Seroquel at bedtime Type 2 diabetes mellitus - stable with metformin. Maintenance issues - - DVT prophylaxis - SCDs - GI prophylaxis - not indicated - Nutrition - diabetic diet - Mauricio catheter - not indicated CODE STATUS - DO NOT RESUSCITATE but trial of intubation is okay Admission justification - patient will be referred observation status for hydration and antibiotic initiation Disposition - I would anticipate discharge home tomorrow if stable overnight Rodrigo Hong M.D.
[2018-09-09] MEDS: MIRABEGRON 50 MG PO SCH (10:13)
--- NOTE | 2018-09-09 11:50 | CRLCT ---
INDICATION: Pulmonary nodules noted on chest x-ray COMPARISON: Portable chest dated 08/05/2018 TECHNIQUE: CT volumetric acquisition was performed of the thorax without IV contrast. FINDINGS: The CT images demonstrate inflammatory changes within both lungs. There is inflammatory bronchial wall thickening and there are patchy peribronchial centrilobular opacities as well as areas of more confluent alveolar density within the superior segment of the right lower lobe. Findings are consistent with areas of infectious bronchiolitis and early bronchopneumonia. There are no suspect appearing nodules or masses. Pulmonary vessels appear normal in size with no evidence of interstitial edema. Thyroid gland has normal size and density. There is atherosclerotic calcification within the coronary arteries and thoracic aorta. Heart size appears normal. There is no evidence of pericardial fluid or pleural fluid. There are a few small reactive appearing lymph nodes within the central mediastinum. IMPRESSION: Inflammatory peribronchial airspace nodular opacities identified. Findings are consistent with infectious bronchiolitis. Dictated by Pablo Falcon MD @ 09/09/2018 11:48:56 AM Please note that all CT scans at this facility use dose modulation, iterative reconstruction, and/or weight-based dosing when appropriate to reduce radiation dose to as low as reasonably achievable. Dictated by: Pablo Falcon MD @ 09/09/2018 11:49:06 (Electronically Signed)
[2018-09-09] MEDS: Melatonin 3 MG Tab PO SCH (20:47)
[2018-09-09] MEDS: QUETIAPINE 25 MG PO SCH (20:47)
[2018-09-10] MEDS: METFORMIN 500 MG PO SCH (08:04)
[2018-09-10] MEDS: DONEPEZIL 10 MG PO SCH (08:05)
[2018-09-10] MEDS: Aspirin 81 MG Tab.EC**POM PO SCH (08:06)
[2018-09-10] MEDS: Tamsulosin 0.4 MG Cap.ER**POM PO SCH (08:06)
[2018-09-10] MEDS: MIRABEGRON 50 MG PO SCH (08:07)
[2018-09-10] MEDS: Metoprolol Succinate 50 MG Tab.ER**POM PO SCH (08:08)
[2018-09-10] MEDS: Doxycycline 100 MG Cap PO SCH ×2 (10:49→22:04)
--- NOTE | 2018-09-10 12:22 | PCM.PN ---
- General Info Date of Service: 09/10/18 Subjective Update: There were no acute events overnight. No significant behavior issues. Patient did work with physical therapy today and seems to have good strength but has difficulty following cues and executing movements because of his dementia. He has not had any fevers and has not had any hypoxia. Vital signs have all been stable. His is very concerned about his safety at home and does not feel comfortable with him going home at this point. She is interested in fdc placement for strengthening and his safety. Functional Status: Reports: Pain Controlled, Tolerating Diet - Review of Systems General: Reports: Weakness - Patient Data Vitals - Most Recent: Last Vital Signs Temp 37.1 C 09/10/18 08:23 Pulse 70 09/10/18 08:23 Resp 16 09/10/18 08:23 BP 125/59 L 09/10/18 08:23 Pulse Ox 90 L 09/10/18 08:23 Weight - Most Recent: 86.591 kg I&O - Last 24 Hours: Intake & Output 09/09/18 09/10/18 09/10/18 22:59 06:59 14:59 Intake Total 360 Balance 360 Med Orders - Current: Current Medications Acetaminophen (Tylenol) 650 mg PO Q4H PRN PRN Reason: Pain (Mild 1-3)/fever Albuterol (Proventil Neb Soln) 2.5 mg NEB Q4H PRN PRN Reason: Shortness Of Breath/wheezing Aspirin (Halfprin) 81 mg PO DAILY [facility] Last Admin: 09/10/18 08:06 Dose: 81 mg Donepezil HCl (Aricept) 10 mg PO DAILY [facility] Last Admin: 09/10/18 08:05 Dose: 10 mg Doxycycline Hyclate (Vibramycin) 100 mg PO BID [facility] Last Admin: 09/10/18 10:49 Dose: 100 mg Melatonin (Melatonin) 9 mg PO BEDTIME [facility] Last Admin: 09/09/18 20:47 Dose: 9 mg Metformin HCl (Glucophage) 0 mg PO DAILY@0800 [facility] Last Admin: 09/10/18 08:04 Dose: 250 mg Metoprolol Succinate (Toprol Xl) 25 mg PO DAILY [facility] Last Admin: 09/10/18 08:08 Dose: 25 mg Ondansetron HCl (Zofran Odt) 4 mg PO Q6H PRN PRN Reason: Nausea able to take PO Mirabegron 50 Mg Tab Extended Release Pom 0 each PO DAILY [facility] Last Admin: 09/10/18 08:07 Dose: 1 each Quetiapine Fumarate (Seroquel) 12.5 mg PO BEDTIME [facility] Last Admin: 09/09/18 20:47 Dose: 12.5 mg Tamsulosin HCl (Flomax) 0.4 mg PO DAILY [facility] Last Admin: 09/10/18 08:06 Dose: 0.4 mg Discontinued Medications Doxycycline Hyclate (Vibramycin) 100 mg PO Q12H [facility] Last Admin: 09/08/18 21:05 Dose: 100 mg Sodium Chloride (Normal Saline) 1,000 mls @ 500 mls/hr IV ASDIRECTED [facility] Last Admin: 09/08/18 18:34 Dose: 500 mls/hr Sodium Chloride (Normal Saline) 1,000 mls @ 125 mls/hr IV ASDIRECTED [facility] Last Admin: 09/09/18 04:44 Dose: 125 mls/hr Lidocaine HCl (Xylocaine 2% Jelly) 10 ml MUCMEM ONETIME ONE Stop: 09/08/18 16:46 Last Admin: 09/08/18 17:01 Dose: 10 ml Metformin HCl (Glucophage) 500 mg PO DAILY [facility] Last Admin: 09/09/18 08:21 Dose: 500 mg Metoprolol Succinate (Toprol Xl) 25 mg PO DAILY [facility] Last Admin: 09/09/18 08:21 Dose: 25 mg Mirabegron (Myrbetriq) 50 mg PO DAILY [facility] Last Admin: 09/09/18 10:13 Dose: Not Given - Exam Quality Assessment: No: Supplemental Oxygen General: Alert, Cooperative, No Acute Distress. No: Oriented Lungs: Normal Respiratory Effort Cardiovascular: Regular Rate, Regular Rhythm GI/Abdominal Exam: Soft, No Distention Extremities: No Pedal Edema Psy/Mental Status: Alert, Normal Affect - Problem List & Annotations (1) Acute bronchitis SNOMED Code(s): 66457242 Code(s): J20.9 - ACUTE BRONCHITIS, UNSPECIFIED Status: Acute Current Visit: Yes Qualifiers: Bronchitis organism: unspecified organism Qualified Code(s): J20.9 - Acute bronchitis, unspecified (2) Weakness SNOMED Code(s): 53581296 Code(s): R53.1 - WEAKNESS Status: Acute Current Visit: Yes (3) Dehydration SNOMED Code(s): 97960182 Code(s): E86.0 - DEHYDRATION Status: Acute Current Visit: Yes (4) Alzheimer's dementia SNOMED Code(s): 30488868 Code(s): G30.9 - ALZHEIMER'S DISEASE, UNSPECIFIED Status: Chronic Current Visit: Yes Qualifiers: Alzheimer's disease onset: unspecified onset Dementia behavioral disturbance: without behavioral disturbance Qualified Code(s): G30.9 - Alzheimer's disease, unspecified; F02.80 - Dementia in other diseases classified elsewhere without behavioral disturbance (5) Type 2 diabetes mellitus SNOMED Code(s): 10569444 Code(s): E11.9 - TYPE 2 DIABETES MELLITUS WITHOUT COMPLICATIONS Status: Chronic Current Visit: No Qualifiers: Diabetes mellitus equipment operator intermodal yard insulin use: without long-term use Diabetes mellitus complication status: without complication Qualified Code(s): E11.9 - Type 2 diabetes mellitus without complications - Problem List Review Problem List Initiated/Reviewed/Updated: Yes - My Orders Last 24 Hours: My Active Orders 09/10/18 08:00 metFORMIN [Glucophage] 0 mg PO DAILY@0800 - Plan Plan:: ASSESSMENT AND PLAN - Acute bronchitis - clinically doing well from a bronchitis standpoint. Tolerating antibiotics not requiring oxygen. -Doxycycline x total of 7 days -saline lock IV -Physical therapy Generalized weakness - strength seems to be okay, his problem is more that he has difficulty following cues because of his dementia. His is very concerned about his safety. She would like him placed in a fdc but unfortunately no beds are available at this time. -group home referrals will be placed today Possible lung nodules - CT suggestive of inflammatory nodules related to bronchitis. -Management as above Alzheimer's dementia - no behavior issues. -Melatonin and Seroquel at bedtime Type 2 diabetes mellitus - stable with metformin. Maintenance issues - - DVT prophylaxis - SCDs - GI prophylaxis - not indicated - Nutrition - diabetic diet - Mauricio catheter - not indicated CODE STATUS - DO NOT RESUSCITATE but trial of intubation is okay Admission justification - patient will be referred observation status for hydration and antibiotic initiation Disposition - I would anticipate discharge to a group home facility tomorrow if stable overnight Rodrigo Hong M.D.
[2018-09-10] MEDS: Melatonin 3 MG Tab PO SCH (22:02)
[2018-09-10] MEDS: QUETIAPINE 25 MG PO SCH (22:03)
[2018-09-11] MEDS: Metoprolol Succinate 50 MG Tab.ER**POM PO SCH (08:02)
[2018-09-11] MEDS: Doxycycline 100 MG Cap PO SCH (08:02)
[2018-09-11] MEDS: METFORMIN 500 MG PO SCH (08:03)
[2018-09-11] MEDS: DONEPEZIL 10 MG PO SCH (08:03)
[2018-09-11] MEDS: Tamsulosin 0.4 MG Cap.ER**POM PO SCH (08:03)
[2018-09-11] MEDS: Aspirin 81 MG Tab.EC**POM PO SCH (08:04)
[2018-09-11] MEDS: MIRABEGRON 50 MG PO SCH (08:04)
[2018-09-11 08:05] VITALS: BP 141/60
--- NOTE | 2018-09-11 11:02 | PCM.DCSUM1 ---
Discharge Summary - Hospital Course Brief History: 83-year-old male with history of Alzheimer's dementia who presented with weakness, increased confusion and cough. He was admitted for management of acute bronchitis and generalized weakness. Diagnosis: Stroke: No - Discharge Data Discharge Date: 09/11/18 Discharge Disposition: Home, [facility] Condition: Fair - Discharge Diagnosis/Problem(s) (1) Acute bronchitis SNOMED Code(s): 16146897 ICD Code: J20.9 - ACUTE BRONCHITIS, UNSPECIFIED Status: Acute Qualifiers: Bronchitis organism: unspecified organism Qualified Code(s): J20.9 - Acute bronchitis, unspecified (2) Weakness SNOMED Code(s): 50347590 ICD Code: R53.1 - WEAKNESS Status: Acute (3) Dehydration SNOMED Code(s): 88941695 ICD Code: E86.0 - DEHYDRATION Status: Acute (4) Alzheimer's dementia SNOMED Code(s): 10944175 ICD Code: G30.9 - ALZHEIMER'S DISEASE, UNSPECIFIED Status: Chronic Qualifiers: Alzheimer's disease onset: unspecified onset Dementia behavioral disturbance: without behavioral disturbance Qualified Code(s): G30.9 - Alzheimer's disease, unspecified; F02.80 - Dementia in other diseases classified elsewhere without behavioral disturbance (5) Type 2 diabetes mellitus SNOMED Code(s): 84170620 ICD Code: E11.9 - TYPE 2 DIABETES MELLITUS WITHOUT COMPLICATIONS Status: Chronic Qualifiers: Diabetes mellitus retirement insulin use: without termination clerk use Diabetes mellitus complication status: without complication Qualified Code(s): E11.9 - Type 2 diabetes mellitus without complications - Patient Summary/Data Consults: Consultations 09/09/18 07:00 PT Evaluation and Treatment [CONS] Routine Please Evaluate and Treat. PT Reason for Consult: Strengthening This query below is only for informational purposes and is not editable. Hospital Course: Satish presented to the emergency room with generalized weakness, cough and increased confusion. Workup in the emergency room was fairly reassuring with normal laboratory studies and clear chest x-ray. With his increased cough bronchitis was suspected. The radiologist did comment on some possible rounded nodules in the upper lung saab bilaterally. Because of his profound weakness and inability to be safe at home he was admitted to the hospital for antibiotic initiation and physical therapy. The morning after admission a CT scan of the chest was obtained to further evaluate the rounded nodules seen on the chest x- ray. These were thought to be inflammatory nodules related to infectious bronchitis/bronchiolitis. He had not had any fevers and his cough is better by this point. Mental status had improved but he did remain fairly weak. He remained hospitalized for another day for additional physical therapy and additional antibiotic therapy. There were no acute events overnight the second night of hospitalization. I felt that he was stable for discharge at this point but unfortunately his felt very uncomfortable with him going home with his mentioned and increasing weakness from baseline. He did remain hospitalized because of an unsafe discharge plan. We sent referrals to local nursing homes and his to [facility] memory care units on the day before discharge. Initially the plan is for [facility] but ultimately we decided he would be going to a memory care unit at a local assisted living facility. He will be receiving home health care including physical therapy. He will need several more days of antibiotics but has been doing well from an infection standpoint. He has not been hypoxic and has not had fevers. - Patient Instructions Diet: Diabetic Diet Activity: As Tolerated Driving: Do Not Drive Showering/Bathing: May Shower Notify Provider of: Fever, Increased Pain, Nausea and/or Vomiting Other/Special Instructions: 1. You were in the hospital for management of generalized weakness that occurred as a result of acute bronchitis. Your condition is improving with antibiotic therapy. I recommend 8 additional doses of doxycycline. You should take 100 mg twice daily. Your next dose is due tonight. 2. Continue your other medications as previously prescribed. I would recommend adding melatonin 9 mg at bedtime to help regulate the sleep/wake cycle. 3. Referral to home health nursing to provide nursing care and physical therapy after hospital discharge. 4. Seek medical attention if if fever greater than 101, significant shortness of breath or if you develop chest pain. - Discharge Plan *PRESCRIPTION DRUG MONITORING PROGRAM REVIEWED*: Not Applicable *COPY OF PRESCRIPTION DRUG MONITORING REPORT IN PATIENT MARCUS: Not Applicable Prescriptions/Med Rec: Doxycycline [Vibramycin] 100 mg PO BID #8 cap Melatonin 9 mg PO BEDTIME #45 tablet Home Medications: Home Meds Aspirin [Adult Low Dose Aspirin EC] 81 mg PO DAILY 03/19/16 [History] Cinnamon Bark [Cinnamon] 500 mg PO DAILY 03/19/16 [History] Coconut Oil 1,000 mg PO DAILY 03/19/16 [History] Donepezil HCl [Aricept] 10 mg PO DAILY 03/19/16 [History] Metoprolol Succinate [Toprol XL] 25 mg PO DAILY 03/19/16 [History] Mirabegron [Myrbetriq] 50 mg PO DAILY 03/19/16 [History] Tamsulosin [Flomax] 0.4 mg PO DAILY 03/19/16 [History] metFORMIN [Glucophage] 500 mg PO DAILY 03/19/16 [History] QUEtiapine Fumarate [Quetiapine Fumarate] 12.5 mg PO DAILY 09/08/18 [History] Doxycycline [Vibramycin] 100 mg PO BID #8 cap 09/11/18 [Rx] Melatonin 9 mg PO BEDTIME #45 tablet 09/11/18 [Rx] Oxygen Therapy Mode: Room Air Patient Handouts: Acute Bronchitis, Adult, [id number], Doxycycline tablets or capsules Referrals: Philipp Diaz MD [Primary Care Provider] - 09/16/18 1:30 pm (Please arrive 15 minutes aerly to register for your appointment) - Discharge Summary/Plan Comment DC Time >30 min.: Yes (40 - setting up home health care and assisted living discharge) - Patient Data Vitals - Most Recent: Last Vital Signs Temp 37.2 C 09/11/18 07:00 Pulse 68 09/11/18 08:02 Resp 16 09/11/18 07:00 BP 141/60 H 09/11/18 08:02 Pulse Ox 91 L 09/11/18 07:00 Weight - Most Recent: 86.591 kg I&O - Last 24 hours: Intake & Output 09/10/18 09/11/18 09/11/18 22:59 06:59 14:59 Intake Total 400 Balance 400 Med Orders - Current: Current Medications Acetaminophen (Tylenol) 650 mg PO Q4H PRN PRN Reason: Pain (Mild 1-3)/fever Albuterol (Proventil Neb Soln) 2.5 mg NEB Q4H PRN PRN Reason: Shortness Of Breath/wheezing Aspirin (Halfprin) 81 mg PO DAILY [facility] [place] Last Admin: 09/11/18 08:04 Dose: 81 mg Donepezil HCl (Aricept) 10 mg PO DAILY [facility] [place] Last Admin: 09/11/18 08:03 Dose: 10 mg Doxycycline Hyclate (Vibramycin) 100 mg PO BID [facility] [place] Last Admin: 09/11/18 08:02 Dose: 100 mg Melatonin (Melatonin) 9 mg PO BEDTIME [facility] [place] Last Admin: 09/10/18 22:02 Dose: 9 mg Metformin HCl (Glucophage) 0 mg PO DAILY@0800 [facility] [place] Last Admin: 09/11/18 08:03 Dose: 500 mg Metoprolol Succinate (Toprol Xl) 25 mg PO DAILY [facility] [place] Last Admin: 09/11/18 08:02 Dose: 25 mg Ondansetron HCl (Zofran Odt) 4 mg PO Q6H PRN PRN Reason: Nausea able to take PO Mirabegron 50 Mg Tab Extended Release Pom 0 each PO DAILY [facility] [place] Last Admin: 09/11/18 08:04 Dose: 1 each Quetiapine Fumarate (Seroquel) 12.5 mg PO BEDTIME [facility] [place] Last Admin: 09/10/18 22:03 Dose: 12.5 mg Tamsulosin HCl (Flomax) 0.4 mg PO DAILY [facility] [place] Last Admin: 09/11/18 08:03 Dose: 0.4 mg Discontinued Medications Doxycycline Hyclate (Vibramycin) 100 mg PO Q12H [facility] [place] Last Admin: 09/08/18 21:05 Dose: 100 mg Sodium Chloride (Normal Saline) 1,000 mls @ 500 mls/hr IV ASDIRECTED [facility] [place] Last Admin: 09/08/18 18:34 Dose: 500 mls/hr Sodium Chloride (Normal Saline) 1,000 mls @ 125 mls/hr IV ASDIRECTED [facility] [place] Last Admin: 09/09/18 04:44 Dose: 125 mls/hr Lidocaine HCl (Xylocaine 2% Jelly) 10 ml MUCMEM ONETIME ONE Stop: 09/08/18 16:46 Last Admin: 09/08/18 17:01 Dose: 10 ml Metformin HCl (Glucophage) 500 mg PO DAILY [facility] [place] Last Admin: 09/09/18 08:21 Dose: 500 mg Metoprolol Succinate (Toprol Xl) 25 mg PO DAILY [facility] [place] Last Admin: 09/09/18 08:21 Dose: 25 mg Mirabegron (Myrbetriq) 50 mg PO DAILY [facility] [place] Last Admin: 09/09/18 10:13 Dose: Not Given - Exam Quality Assessment: Denies: Supplemental Oxygen General: Reports: Alert, Cooperative, No Acute Distress. Denies: Oriented Lungs: Reports: Clear to Auscultation, Normal Respiratory Effort Cardiovascular: Reports: Regular Rate, Regular Rhythm GI/Abdominal Exam: Soft, No Distention Extremities: No Pedal Edema Psy/Mental Status: Reports: Alert, Normal Affect
== END 2018-09-11 12:03 | disposition home health service (06) ==
LOC: JP.ED 15:57 → JP.ICU 19:09 → JP.MS 09-09 13:17
PROVIDERS: ADMIT Internal Medicine; ATTEND Internal Medicine
DX: J20.9 Acute bronchitis, unspecified (principal); E86.0 Dehydration; I10 Essential (primary) hypertension; E11.9 Type 2 diabetes mellitus without complications; G30.9 Alzheimer's disease, unspecified; F02.80 Dementia in other diseases classified elsewhere, unspecified severity, without behavioral disturbance, psychotic disturbance, mood disturbance, and anxiety; F41.9 Anxiety disorder, unspecified; F32.9 Major depressive disorder, single episode, unspecified; Z91.040 Latex allergy status; Z79.82 Long term (current) use of aspirin; Z79.84 Long term (current) use of oral hypoglycemic drugs; Z79.899 Other long term (current) drug therapy
CPT/HCPCS: 36415; 71045; 71250; 80048; 80053; 81001; 84484; 85025; 85027; 96360; 97162; 97530; 99285; A9270; J7030; 96361; G0378

== ENCOUNTER 2018-09-26 20:31 | Emergency (ER) | payer MEDICARE, OTHER ==
[2018-09-26] MEDS ORDERED: QUEtiapine 25 MG Tab PO ONE (20:52)
--- NOTE | 2018-09-26 20:57 | EDM.PDOCBH ---
<Angie Navarrete - Last Filed: 09/26/18 23:11> ED HPI GENERAL MEDICAL PROBLEM - General Chief Complaint: Behavioral/Psych Stated Complaint: EVAL MEDICAL Time Seen by Provider: 09/26/18 20:53 Source of Information: Reports: Patient, Family History Limitations: Reports: No Limitations - History of Present Illness INITIAL COMMENTS - FREE TEXT/NARRATIVE: PT HAS A HISTORY OF PARKINSONS AND DEMENTIA. iN THE LAST FEW DAYS HE HAS BECOME VERY AGITATED AND PHYSICAL. hE DOES NOT WANT TO DO ANYTHING HE IS TOLD. hE WAS VERY AGITATED YESTERDAY AND THEN AGAIN AT 4 THIRTY AM. hE DID HAVE A HOSPITAL PSYCHOSIS WHILE HE WAS IN THE HOSPITAL FIR A TURP. Onset: Today, Other (PT HAD 2 EPISODES LAST NITE. ) Duration: Hour(s): Location: Reports: Chest Associated Symptoms: Reports: Confusion, Other (PT HAS A HISTORY OF PARKINSONS AND DEMENTIA. ) - Related Data Allergies Allergy/AdvReac Type Severity Reaction Status Date / Time latex AdvReac Rash Verified 02/13/17 22:57 Home Meds: Home Meds Aspirin [Adult Low Dose Aspirin EC] 81 mg PO DAILY 03/19/16 [History] Cinnamon Bark [Cinnamon] 500 mg PO DAILY 03/19/16 [History] Coconut Oil 1,000 mg PO DAILY 03/19/16 [History] Donepezil HCl [Aricept] 10 mg PO DAILY 03/19/16 [History] Metoprolol Succinate [Toprol XL] 25 mg PO DAILY 03/19/16 [History] Mirabegron [Myrbetriq] 50 mg PO DAILY 03/19/16 [History] Tamsulosin [Flomax] 0.4 mg PO DAILY 03/19/16 [History] metFORMIN [Glucophage] 250 mg PO DAILY 03/19/16 [History] QUEtiapine Fumarate [Quetiapine Fumarate] 12.5 mg PO DAILY 09/08/18 [History] Melatonin 9 mg PO BEDTIME #45 tablet 09/11/18 [Rx] Past Medical History HEENT History: Reports: Hard of Hearing, Impaired Vision, Other (See Below) Other HEENT History: Hearing aids Cardiovascular History: Reports: Hypertension Respiratory History: Reports: Pneumonia, Recurrent, Sleep Apnea Gastrointestinal History: Reports: None Genitourinary History: Reports: Prostate Disorder Other Genitourinary History: TURP Musculoskeletal History: Reports: Fracture Neurological History: Reports: Alzheimers Disease, Neuropathy, Diabetic, Parkinson's Psychiatric History: Reports: Alzheimers Disease, Anxiety, Dementia, PTSD Endocrine/Metabolic History: Reports: Diabetes, Type II - Infectious Disease History Infectious Disease History: Reports: Chicken Pox - Past Surgical History GI Surgical History: Reports: Colonoscopy Male Surgical History: Reports: TURP-Transurethral Resection of Prostate Social & Family History - Family History Oncologic: Reports: Lung - Tobacco Use Smoking Status *Q: Never Smoker - Caffeine Use Caffeine Use: Reports: None - Recreational Drug Use Recreational Drug Use: No - Living Situation & Occupation Living situation: Reports: ED ROS GENERAL - Review of Systems Review Of Systems: See Below Constitutional: Reports: No Symptoms, Other (PT HAS HD SOME PERIODS OF MARKED AGITATION AND HE HAS BEEN VERY OUT OF CONTROL. hE WILL HAVE A CAT SCAN OF THE HEAD. ) HEENT: Reports: No Symptoms Respiratory: Reports: No Symptoms Cardiovascular: Reports: No Symptoms Endocrine: Reports: No Symptoms GI/Abdominal: Reports: No Symptoms : Reports: No Symptoms Musculoskeletal: Reports: No Symptoms Skin: Reports: No Symptoms Psychiatric: Reports: Agitation, Homicidal Ideation ED EXAM, BEHAVIORAL HEALTH - Physical Exam Exam: See Below Text/Narrative:: P ARRIVED VERY AGITATED AND HE HAD BEEN VERY OUT OF CONTROL AT [facility]. hE WAS ALSO OUT OF CONTROL YESTERDAY IN THE AFTERNOON AND AGAIN AT 4 THIRTY IN THE AM. Exam Limited By: No Limitations General Appearance: Alert, Anxious, Moderate Distress Ears: Normal TMs Nose: Normal Inspection Throat/Mouth: Normal Inspection Head: Atraumatic Neck: Normal Inspection Respiratory/Chest: No Respiratory Distress Cardiovascular: Regular Rate, Rhythm GI/Abdominal: Soft, Non-Tender (Male) Exam: Deferred Rectal (Males) Exam: Deferred Back Exam: Normal Inspection Extremities: Normal Inspection Neurological: Alert, Normal Cognition, Oriented x 3 Psychiatric: Other (PT WAS VERY AGITATED ON ARRIVAL. ) COURSE, BEHAVIORAL HEALTH COMP - Course Vital Signs: Last Vital Signs Temp 99.5 F 09/26/18 20:37 Pulse 63 09/26/18 21:37 Resp 18 09/26/18 21:37 BP 131/71 09/26/18 21:37 Pulse Ox 97 09/26/18 21:37 Orders, Labs, Meds: Active Orders 24 hr Category Date Time Status Melatonin Med 09/26/18 20:51 Active 9 mg PO BEDTIME Medication Orders Melatonin (Melatonin) 9 mg PO BEDTIME LARISSA Last Admin: 09/26/18 21:32 Dose: Not Given Admin: 09/26/18 21:09 Dose: 9 mg Laboratory Tests 09/26/18 09/26/18 09/26/18 Range/Units 21:02 21:02 21:02 WBC 5.5 (4.5-11.0) K/uL RBC 4.98 (4.30-5.90) M/uL Hgb 14.6 (12.0-15.0) g/dL Hct 45.1 (40.0-54.0) % MCV 91 (80-98) fL MCH 29 (27-31) pg MCHC 32 (32-36) % Plt Count 191 (150-400) K/uL Neut % (Auto) 62 (36-66) % Lymph % (Auto) 23 L (24-44) % [place] % (Auto) 15 H (2-6) % Eos % (Auto) 1 L (2-4) % Baso % (Auto) 0 (0-1) % Sodium 141 (140-148) mmol/L Potassium 4.2 (3.6-5.2) mmol/L Chloride 104 (100-108) mmol/L Carbon Dioxide 27 (21-32) mmol/L Anion Gap 10.1 (5.0-14.0) mmol/L BUN 21 H (7-18) mg/dL Creatinine 1.5 H (0.8-1.3) mg/dL Est Cr Clr Drug Dosing 37.37 mL/min Estimated GFR (MDRD) 45 L (>60) Glucose 155 H (74-106) mg/dL Calcium 9.0 (8.5-10.1) mg/dL Total Bilirubin 0.4 D (0.2-1.0) mg/dL AST 18 (15-37) U/L ALT 23 (12-78) U/L Alkaline Phosphatase 53 (46-116) U/L C-Reactive Protein 0.08 (0.0-0.3) mg/dL Total Protein 6.5 (6.4-8.2) g/dL Albumin 3.4 (3.4-5.0) g/dL Globulin 3.1 (2.3-3.5) g/dL Albumin/Globulin Ratio 1.1 L (1.2-2.2) TSH, Ultra Sensitive (0.358-3.740) uIU/mL Urine Color Urine Appearance Urine pH (4.5-8.0) Ur Specific [place] (1.008-1.030) Urine Protein (NEGATIVE) mg/dL Urine Glucose (UA) (NEGATIVE) mg/dL Urine Ketones (NEGATIVE) mg/dL Urine Occult Blood (NEGATIVE) Urine Nitrite (NEGAITVE) Urine Bilirubin (NEGATIVE) Urine Urobilinogen (NORMAL) mg/dL Ur Leukocyte Esterase (NEGATIVE) Urine RBC (0-5) Urine WBC (0-5) Ur Epithelial Cells Amorphous Sediment Urine Bacteria Urine Mucus 09/26/18 09/26/18 Range/Units 21:29 21:36 WBC (4.5-11.0) K/uL RBC (4.30-5.90) M/uL Hgb (12.0-15.0) g/dL Hct (40.0-54.0) % MCV (80-98) fL MCH (27-31) pg MCHC (32-36) % Plt Count (150-400) K/uL Neut % (Auto) (36-66) % Lymph % (Auto) (24-44) % [place] % (Auto) (2-6) % Eos % (Auto) (2-4) % Baso % (Auto) (0-1) % Sodium (140-148) mmol/L Potassium (3.6-5.2) mmol/L Chloride (100-108) mmol/L Carbon Dioxide (21-32) mmol/L Anion Gap (5.0-14.0) mmol/L BUN (7-18) mg/dL Creatinine (0.8-1.3) mg/dL Est Cr Clr Drug Dosing mL/min Estimated GFR (MDRD) (>60) Glucose (74-106) mg/dL Calcium (8.5-10.1) mg/dL Total Bilirubin (0.2-1.0) mg/dL AST (15-37) U/L ALT (12-78) U/L Alkaline Phosphatase (46-116) U/L C-Reactive Protein (0.0-0.3) mg/dL Total Protein (6.4-8.2) g/dL Albumin (3.4-5.0) g/dL Globulin (2.3-3.5) g/dL Albumin/Globulin Ratio (1.2-2.2) TSH, Ultra Sensitive 1.826 (0.358-3.740) uIU/mL Urine Color Yellow Urine Appearance Clear Urine pH 5.0 (4.5-8.0) Ur Specific [place] 1.025 (1.008-1.030) Urine Protein 30 H (NEGATIVE) mg/dL Urine Glucose (UA) Normal (NEGATIVE) mg/dL Urine Ketones Negative (NEGATIVE) mg/dL Urine Occult Blood Trace (NEGATIVE) Urine Nitrite Negative (NEGAITVE) Urine Bilirubin Negative (NEGATIVE) Urine Urobilinogen Normal (NORMAL) mg/dL Ur Leukocyte Esterase Negative (NEGATIVE) Urine RBC 0-5 (0-5) Urine WBC 0-5 (0-5) Ur Epithelial Cells Rare Amorphous Sediment Not seen Urine Bacteria Few Urine Mucus Few Medications Generic Name Dose Route Start Last Admin Trade Name Freq PRN Reason Stop Dose Admin Melatonin 9 mg 09/26/18 20:51 09/26/18 21:32 Melatonin PO Not Given BEDTIME LARISSA Discontinued Medications Generic Name Dose Route Start Last Admin Trade Name Freq PRN Reason Stop Dose Admin Lorazepam 1 mg 09/26/18 21:09 09/26/18 21:34 Ativan PO 09/26/18 21:10 1 mg ONETIME ONE Administration Quetiapine Fumarate 25 mg 09/26/18 20:52 09/26/18 21:09 Seroquel PO 09/26/18 20:53 25 mg ONETIME ONE Administration Medical Clearance: 09/26/18 21:52 PT ARRIVED VERY AGITATED AND OUT OF CONTROL. hE WAS GIVEN SEROQUEL 25 MG, ATIVAN 1 MG AND HIS MELOTONIN 9 MG. 09/26/18 23:11 pt had normal appearing lab work. Cat scan of the head did show a large area rt frontal encephalmalacia. This is definitely old. The family was not aware of this finding. Will check at the [facility] to see if there is a bed. Departure - Departure Disposition: DC/Tfer to Psych Hosp/Unit 65 Clinical Impression: Agitation Dementia Qualifiers: Dementia type: Parkinson's disease Dementia behavioral disturbance: with behavioral disturbance Qualified Code(s): G20 - Parkinson's disease; F02.81 - Dementia in other diseases classified elsewhere with behavioral disturbance - Discharge Information Referrals: Philipp Diaz MD [Primary Care Provider] - Forms: ED Department Discharge <OfficerHector - Last Filed: 09/27/18 08:13> Departure - Departure Time of Disposition: 08:13 Condition: Poor - Assessment/Plan Plan: Assessment Acuity = acute on chronic Site and laterality = agitation, and elderly gentleman known history of dementia and Parkinson's Etiology = probable progression of the disease Manifestations = none Location of injury = Home Lab values = CBC unremarkable CMP craning elevated 1.5 consistent chronic renal failure stage TIIIa urinalysis unremarkable thyroid within normal limits Plan Called discussed case with Dr. Chan Nuñez [facility] kindly accepted the patient at 8 AM for further evaluation and care will be transported via EMS ground This note was dictated using [employer] voice recognition software please call with any questions on syntax or grammar.
[2018-09-26] MEDS ORDERED: LORazepam 1 MG Tab PO ONE (21:09)
[2018-09-26] MEDS: Melatonin 3 MG Tab PO SCH ×2 (21:09→21:32)
--- NOTE | 2018-09-26 22:57 | CRLCT ---
INDICATION: Out of control behavior. TECHNIQUE: Scanning of the head was performed without IV contrast material. COMPARISON: None. FINDINGS: No intracranial hemorrhage is demonstrated. No positive mass effect is evident. Differentiation between the cardenas matter and white matter is preserved. 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 A small calcification is demonstrated in the right luis angel and is of doubtful significance. The ventricles and other subarachnoid spaces are within normal limits for the patient`s age. No calvarial abnormality is evident. The visualized paranasal and mastoid sinuses are clear. IMPRESSION: 1. No acute abnormality demonstrated. 2. Right frontal lobe encephalomalacia. Please note that all CT scans at this facility use dose modulation, iterative reconstruction, and/or weight-based dosing when appropriate to reduce radiation dose to as low as reasonably achievable. Dictated by Prashant Kennedy MD @ Sep 26 2018 10:54PM Signed by Dr. Prashant Kennedy @ Sep 26 2018 10:56PM
[2018-09-27 08:51] VITALS: BP 179/89
== END 2018-09-27 08:51 ==
LOC: JP.ED 20:31
DX: R45.1 Restlessness and agitation (principal); G20 Parkinson's disease; F02.81 Dementia in other diseases classified elsewhere, unspecified severity, with behavioral disturbance; G30.9 Alzheimer's disease, unspecified; I10 Essential (primary) hypertension; E11.9 Type 2 diabetes mellitus without complications; Z79.84 Long term (current) use of oral hypoglycemic drugs; Z79.82 Long term (current) use of aspirin; Z91.040 Latex allergy status
CPT/HCPCS: 36415; 70450; 80053; 81001; 84443; 85025; 86140; 99285; A9270